=== PATIENT | female | born 1970 | race Caucasian/White ===

== ENCOUNTER 2023-07-19 10:53 | Emergency (ER) | payer MEDICAID ==
[~2023-07-19] VITALS: Ht 152.4 cm; Wt 103.9 kg
[2023-07-19] MEDS ORDERED: LOSA50TA39 PO (11:09)
[2023-07-19 11:44] LABS: BASOPHILS # (AUTO) 0.1 K/UL (0.0-0.2); BASOPHILS % (AUTO) 1.9 % (0.0-2.0); EOSINOPHILS # (AUTO) 0.1 K/uL (0.0-0.7); EOSINOPHILS % (AUTO) 0.9 % (0.0-7.0); HEMOGLOBIN 13.4 g/dL (10.9-14.3); LYMPHOCYTES # (AUTO) 2.6 K/uL (0.8-4.8); LYMPHOCYTES % (AUTO) 32.9 % (20.5-51.5); MEAN CORPUSCULAR HEMOGLOBIN 27.5 uug (24.7-32.8); MEAN CORPUSCULAR HGB CONC 33 g/dL (32.3-35.6); MEAN CORPUSCULAR VOLUME 84.1 fL (75.5-95.3); MONOCYTES # (AUTO) 0.5 K/uL (0.1-1.30); MONOCYTES % (AUTO) 6.8 % (0.0-11.0); NEUTROPHILS # (AUTO) 4.5 K/uL (1.8-8.9); NEUTROPHILS % (AUTO) 57.5 % (38.5-71.5); PLATELET COUNT (AUTO) 297 K/uL (179-408); RED BLOOD CELL COUNT(AUTO) 4.87 MIL/uL (3.63-4.92); RED CELL DISTRIBUTION WIDTH 14.3 % (12.3-17.7); WHITE BLOOD COUNT (AUTO) 7.8 K/uL (3.8-11.8)
[2023-07-19 11:57] LABS: CREATININE 0.6 mg/dL (0.6-1.3); MAGNESIUM 2.2 mg/dL (1.8-2.4); POTASSIUM 4.6 mmol/L (3.5-5.1)
[2023-07-19 12:18] LABS: DIFFERENTIAL COMMENT 1
[2023-07-19] MEDS ORDERED: CLON0.1T PO (12:26)
[2023-07-19] MEDS ORDERED: CLONIDINE HCL 0.1 MG TABLET ONE (12:29)
[2023-07-19 12:30] VITALS: BP 198/96
[2023-07-19] MEDS ORDERED: CLONIDINE HCL 0.1 MG TABLET PO ONE (12:45)
[2023-07-19 14:15] VITALS: O2SAT 97
== END 2023-07-19 14:26 | disposition home or self-care (01) ==
LOC: ER 10:53
DX: I10 Essential (primary) hypertension (principal); E66.01 Morbid (severe) obesity due to excess calories; Z79.899 Other long term (current) drug therapy; Z68.41 Body mass index [BMI] 40.0-44.9, adult
CPT/HCPCS: 36415; 83735; 85025; A4606; A4663